=== PATIENT | male | born 1960 | race Caucasian/White ===

== ENCOUNTER 2024-02-03 11:03 | Outpatient (CLI) | payer BC | END 2024-02-03 11:04 | disposition home or self-care (01) | LOC: ULT 11:03 | PROVIDERS: ATTEND Internal Medicine Nephrology | DX: N17.9 Acute kidney failure, unspecified (principal); N18.30 Chronic kidney disease, stage 3 unspecified; R60.0 Localized edema; N39.43 Post-void dribbling; K82.8 Other specified diseases of gallbladder; J90 Pleural effusion, not elsewhere classified | CPT/HCPCS: 76770 ==

== ENCOUNTER 2024-05-09 14:14 | Outpatient (CLI) | payer BC | END 2024-05-09 14:15 | disposition home or self-care (01) | LOC: MRI 14:14 | PROVIDERS: ATTEND Internal Medicine Nephrology | DX: N18.4 Chronic kidney disease, stage 4 (severe) (principal); N28.1 Cyst of kidney, acquired; N28.89 Other specified disorders of kidney and ureter; J90 Pleural effusion, not elsewhere classified | CPT/HCPCS: 74181 ==